=== PATIENT | male | born 1995 ===

== ENCOUNTER 2020-12-16 12:52 | Emergency (ER) | payer MEDICAID, SELFPAY ==
[2020-12-16 15:07] VITALS: BP 155/66; PULSE 96; RESP 18; TEMP 36.4; O2SAT 100; BMI 19.6
--- NOTE | 2020-12-16 16:26 | ED.GENADULT ---
HPI - General Adult General Chief complaint: General Medical <CRISTHIAN Lopez - Last Filed: 12/16/20 18:03> Stated complaint: dehydration <CRISTHIAN Lopez Last Filed: 12/16/20 18:03> Time Seen by Provider: 12/16/20 15:12 <CRISTHIAN Lopez Last Filed: 12/16/20 18:03> Source: patient <CRISTHIAN Lopez Last Filed: 12/16/20 18:03> Mode of arrival: ambulatory <CRISTHIAN Lopez Last Filed: 12/16/20 18:03> Limitations: no limitations <CRISTHIAN Lopez Last Filed: 12/16/20 18:03> History of Present Illness HPI narrative: Patient is a 24-year-old male with no significant past medical history complaining of muscle spasms in the bilateral legs, left hand as well as left lower quadrant pain in his belly that all began yesterday. He states he has not been drinking any water recently and has only been drinking soda and juice. He also states he has not been eating normally because he is depressed. He has an appointment to speak with the therapist next week at [facility]. He states he is depressed because his mom and has and he has no one in his life. He also states he did vomit once this morning and as he was sitting in the waiting room, the pain in his belly moved more towards the epigastric area. He denies nausea, constipation, diarrhea, fevers. <CRISTHIAN Lopez Last Filed: 12/16/20 18:03> Related Data Home medications: Previous Rx's Medication Instructions Recorded magnesium oxide 400 mg PO BID #20 cap 12/16/20 <CRISTHIAN Lopez Last Filed: 12/16/20 18:03> Allergies/adverse reactions: Allergies Allergy/AdvReac Type Severity Reaction Status Date / Time No Known Allergies Allergy Unverified 08/04/20 16:21 [No Known Allergies*] <CRISTHIAN Lopez Last Filed: 12/16/20 18:03> Review of Systems Review of Systems: Yes all other systems are reviewed and are negative <CRISTHIAN Lopez - Last Filed: 12/16/20 18:03> [facility] Social History Social History: Social History Alcohol intake: never Smoked in Last 30 Days: No Use of substances other than those prescribed or required for medical reasons: No Advance Directives: No Advance Directives Information Provided: Yes <CRISTHIAN Lopez - Last Filed: 12/16/20 18:03> Physical Exam Vital Signs: Vital Signs: Last Vital Signs Temp 100.0 F 12/16/20 18:22 Pulse 108 H 12/16/20 18:22 Resp 18 12/16/20 18:22 BP 134/72 12/16/20 18:22 Pulse Ox 99 12/16/20 18:22 Body Mass Index 19.6 <CRISTHIAN Lopez - Last Filed: 12/16/20 18:03> Vital Signs: Last Vital Signs Temp 100.0 F 12/16/20 18:22 Pulse 108 H 12/16/20 18:22 Resp 18 12/16/20 18:22 BP 134/72 12/16/20 18:22 Pulse Ox 99 12/16/20 18:22 Body Mass Index 19.6 <Leesa Delatorre NP - Last Filed: 12/16/20 23:20> Const: General: cooperative, healthy appearing, comfortable, no acute distress and well developed <CRISTHIAN Lopez - Last Filed: 12/16/20 18:03> Nutritional Appearance: thin <CRISTHIAN Lopez - Last Filed: 12/16/20 18:03> Orientation/consciousness: patient oriented x3 <CRISTHIAN Lopez - Last Filed: 12/16/20 18:03> Eyes: General: appearance normal, both eyes and all related structures <CRISTHIAN Lopez - Last Filed: 12/16/20 18:03> Neck: Neck: Yes normal visual inspection, Yes full ROM, Yes no meningeal signs and Yes supple <CRISTHIAN Lopez - Last Filed: 12/16/20 18:03> Resp: Effort & Inspection: normal respiratory effort and able to speak in complete sentences <CRISTHIAN Lpoez Last Filed: 12/16/20 18:03> Auscultation: clear to auscultation bilaterally <CRISTHIAN Lopez - Last Filed: 12/16/20 18:03> Cardio: Rate: regular rate <Michelle Hubbard [facility] Last Filed: 12/16/20 18:03> Rhythm: regular rhythm <CRISTHIAN Lopez Last Filed: 12/16/20 18:03> Heart sounds: normal S1 and S2 <CRISTHIAN Lopez Last Filed: 12/16/20 18:03> GI: Inspection: Yes normal to inspection <CRISTHIAN Lopez Last Filed: 12/16/20 18:03> Palpation (GI): Soft to palpation, Tenderness to palpation present (GI) in the LLQ; Villanueva's sign negative and with no rebound tenderness and Guarding due to palpation present (GI) in the LLQ <CRISTHIAN Lopez Last Filed: 12/16/20 18:03> Auscultation: Hypoactive bowel sounds present <CRISTHIAN Lopez Last Filed: 12/16/20 18:03> Skin: General skin exam: no rashes or lesions noted <CRISTHIAN Lopez Last Filed: 12/16/20 18:03> Neuro: General: patient oriented x3 and no meningeal signs <CRSITHIAN Lopez Last Filed: 12/16/20 18:03> Extrem: Other: Tenderness to palpation of bilateral calf muscles as well thenar area of left hand <CRISTHIAN Lopez Last Filed: 12/16/20 18:03> Psych: Appearance: grossly normal <CRISTHIAN Lopez Last Filed: 12/16/20 18:03> Speech and movement: Normal speech and movement present <CRISTHIAN Lopez Last Filed: 12/16/20 18:03> Affect: Sad affect present <CRISTHIAN Lopez Last Filed: 12/16/20 18:03> Attitude: cooperative <CRISTHIAN Lopez - Last Filed: 12/16/20 18:03> Thought process: Normal thought process present <CRISTHIAN Lopez - Last Filed: 12/16/20 18:03> Thought content: Normal thought content present <CRISTHIAN Lopez Last Filed: 12/16/20 18:03> Insight: Good insight present (Psych) <CRISTHIAN Lopez - Last Filed: 12/16/20 18:03> Judgement: Good judgement present (Psych) <CRISTHIAN Lopez - Last Filed: 12/16/20 18:03> Course Course Course Narrative: 24-year-old male with no significant past medical history presenting with muscle cramping and pain in bilateral calves and the thenar area of the left hand as well as left lower quadrant pain and vomiting x1. Patient is fairly well appearing, BP is slightly elevated at 150 5/66 but other vital signs are stable. Patient has not been eating or drinking normally recently so I will do labs to assess hydration status, abdomen was quite tender so I will get a CT scan of the abdomen. With regard to the muscle spasms and pain, I will check a CPK for possible rhabdo as well as other electrolyte abnormalities. I will also get a d dimer to r/o DVT although less likely as bilateral. 5:35pm patient labs reveal elevate WBC at 23.8, elevated total bili at 1.8 and direct at 0.6, Mag 1.4, creatinine kinase elevated at 238 and d dimer slightly elevated at 262. Will give 1 g of magnesium and get ultrasound of the lower extremities to rule out DVT. Muscle spasming pain could be due to slightly low magnesium, elevated creatinine kinase and dehydration, likely rhabdomyolysis. Will get UA. 6pm sign out to Leesa Delatorre NP <CRISTHIAN Lopez - Last Filed: 12/16/20 18:03> Patient re evaluated 645 p.m., DVT study negative, magnesium did not infuse secondary to complication with IV. 2nd G IV magnesium infusing, 2nd L of IV fluids infusing. Plan of care is to discharge home after magnesium and fluids. Patient was advised to follow up with primary care physician next week with repeat magnesium levels. He does understand that his hypomagnesemia needs further workup and that if he continues with muscle contractions or shortness of breath that he must return to the emergency department immediately. Detailed description of instructions given to family, both patient and family verbalized understanding of and agrees to plan of care discharge home. <Leesa Delatorre NP - Last Filed: 12/16/20 23:20> Medical Decision Making Lab Data Result diagrams: : 12/16/20 16:46 12/16/20 16:46 <CRISTHIAN Lopez - Last Filed: 12/16/20 18:03> Labs: Lab Results 12/16/20 12/16/20 12/16/20 Range/Units 16:46 16:46 16:46 WBC 23.8 H (4.8-10.8) X10*3/uL RBC 5.53 (4.60-5.80) X10*6/uL Hgb 16.0 (14.0-18.0) g/dl Hct 46.0 (42-52) % MCV 83.2 (80-98) fL MCH 28.9 (27.0-33.0) pg MCHC 34.8 (31.0-36.0) g/dl RDW 12.9 (11.0-16.0) % Plt Count 199 (160-400) X10*3/uL MPV 10.6 (9.4-12.4) fL Immature Gran % (Auto) 0.8 H (0.0-0.4) % Neut % (Auto) 87.6 H (45-73) % Lymph % (Auto) 6.3 L (20-40) % [place] % (Auto) 5.1 (2-11) % Eos % (Auto) 0.0 (0-4) % Baso % (Auto) 0.2 (0-2) % Lymph # (Auto) 1.5 (1.2-4.9) X10*3/uL [place] # (Auto) 1.2 (0.1-1.2) X10*3/uL Eos # (Auto) 0.0 (0.0-0.4) X10*3/uL Baso # (Auto) 0.1 (0.0-0.2) X10*3/uL Abs Immat Gran (auto) 0.19 H (0.00-0.03) X10*3/uL Absolute Neuts (auto) 20.8 H (2.0-8.3) X10*3/uL Absolute Nucleated RBC 0.000 (0.0-0.012) X10*3/uL Nucleated RBC % (auto) 0.0 (0.0-0.2) /100WBC Smear Tech's Comments VERIFIED D-Dimer 262 NG/ML Sodium 136 (135-145) mmol/L Potassium 3.6 (3.3-5.1) mmol/L Chloride 100 (96-108) mmol/L Carbon Dioxide 24 (22-29) mmol/L Anion Gap 16 (12-20) BUN 14 (9-16) mg/dL Creatinine 1.13 (0.5-1.4) mg/dL Estim Creat Clear Calc 92.9 Estimated GFR > 60 Random Glucose 108 (60-115) mg/dL Calcium 9.3 (8.4-10.2) mg/dL Magnesium 1.4 L* (1.6-2.6) mg/dL Total Bilirubin 1.8 H (0.0-1.0) mg/dL Direct Bilirubin 0.6 H (0.0-0.5) mg/dL AST 20 (5-37) U/L ALT 22 (0-40) U/L Alkaline Phosphatase 75 (39-117) U/L Lactate Dehydrogenase 197 (118-273) U/L Total Creatine Kinase 238 H (38-174) U/L Total Protein 7.5 (6.5-8.0) g/dL Albumin 4.5 (3.5-5.0) g/dL Urine Color Urine Appearance Urine pH (5.0-8.0) Ur Specific [place] (1.005-1.025) Urine Protein (NEG-TRACE) MG/DL Urine Glucose (UA) (NEG) MG/DL Urine Ketones (NEG) MG/DL Urine Blood (NEG) Urine Nitrite (NEG) Ur Leukocyte Esterase (NEG) COVID-19 (JAH) (Negative) COVID-19 Clin Com 12/16/20 12/16/20 Range/Units 18:18 18:18 WBC (4.8-10.8) X10*3/uL RBC (4.60-5.80) X10*6/uL Hgb (14.0-18.0) g/dl Hct (42-52) % MCV (80-98) fL MCH (27.0-33.0) pg MCHC (31.0-36.0) g/dl RDW (11.0-16.0) % Plt Count (160-400) X10*3/uL MPV (9.4-12.4) fL Immature Gran % (Auto) (0.0-0.4) % Neut % (Auto) (45-73) % Lymph % (Auto) (20-40) % [place] % (Auto) (2-11) % Eos % (Auto) (0-4) % Baso % (Auto) (0-2) % Lymph # (Auto) (1.2-4.9) X10*3/uL [place] # (Auto) (0.1-1.2) X10*3/uL Eos # (Auto) (0.0-0.4) X10*3/uL Baso # (Auto) (0.0-0.2) X10*3/uL Abs Immat Gran (auto) (0.00-0.03) X10*3/uL Absolute Neuts (auto) (2.0-8.3) X10*3/uL Absolute Nucleated RBC (0.0-0.012) X10*3/uL Nucleated RBC % (auto) (0.0-0.2) /100WBC Smear Tech's Comments D-Dimer NG/ML Sodium (135-145) mmol/L Potassium (3.3-5.1) mmol/L Chloride (96-108) mmol/L Carbon Dioxide (22-29) mmol/L Anion Gap (12-20) BUN (9-16) mg/dL Creatinine (0.5-1.4) mg/dL Estim Creat Clear Calc Estimated GFR Random Glucose (60-115) mg/dL Calcium (8.4-10.2) mg/dL Magnesium (1.6-2.6) mg/dL Total Bilirubin (0.0-1.0) mg/dL Direct Bilirubin (0.0-0.5) mg/dL AST (5-37) U/L ALT (0-40) U/L Alkaline Phosphatase (39-117) U/L Lactate Dehydrogenase (118-273) U/L Total Creatine Kinase (38-174) U/L Total Protein (6.5-8.0) g/dL Albumin (3.5-5.0) g/dL Urine Color YELLOW Urine Appearance CLEAR Urine pH 8.5 H (5.0-8.0) Ur Specific [place] 1.015 (1.005-1.025) Urine Protein NEG (NEG-TRACE) MG/DL Urine Glucose (UA) NEG (NEG) MG/DL Urine Ketones 15 (NEG) MG/DL Urine Blood NEG (NEG) Urine Nitrite NEG (NEG) Ur Leukocyte Esterase NEG (NEG) COVID-19 (JAH) Negative (Negative) COVID-19 Clin Com See Note <CRISTHIAN Lopez - Last Filed: 12/16/20 18:03> Lab Results 12/16/20 12/16/20 12/16/20 Range/Units 16:46 16:46 16:46 WBC 23.8 H (4.8-10.8) X10*3/uL RBC 5.53 (4.60-5.80) X10*6/uL Hgb 16.0 (14.0-18.0) g/dl Hct 46.0 (42-52) % MCV 83.2 (80-98) fL MCH 28.9 (27.0-33.0) pg MCHC 34.8 (31.0-36.0) g/dl RDW 12.9 (11.0-16.0) % Plt Count 199 (160-400) X10*3/uL MPV 10.6 (9.4-12.4) fL Immature Gran % (Auto) 0.8 H (0.0-0.4) % Neut % (Auto) 87.6 H (45-73) % Lymph % (Auto) 6.3 L (20-40) % [place] % (Auto) 5.1 (2-11) % Eos % (Auto) 0.0 (0-4) % Baso % (Auto) 0.2 (0-2) % Lymph # (Auto) 1.5 (1.2-4.9) X10*3/uL [place] # (Auto) 1.2 (0.1-1.2) X10*3/uL Eos # (Auto) 0.0 (0.0-0.4) X10*3/uL Baso # (Auto) 0.1 (0.0-0.2) X10*3/uL Abs Immat Gran (auto) 0.19 H (0.00-0.03) X10*3/uL Absolute Neuts (auto) 20.8 H (2.0-8.3) X10*3/uL Absolute Nucleated RBC 0.000 (0.0-0.012) X10*3/uL Nucleated RBC % (auto) 0.0 (0.0-0.2) /100WBC Smear Tech's Comments VERIFIED D-Dimer 262 NG/ML Sodium 136 (135-145) mmol/L Potassium 3.6 (3.3-5.1) mmol/L Chloride 100 (96-108) mmol/L Carbon Dioxide 24 (22-29) mmol/L Anion Gap 16 (12-20) BUN 14 (9-16) mg/dL Creatinine 1.13 (0.5-1.4) mg/dL Estim Creat Clear Calc 92.9 Estimated GFR > 60 Random Glucose 108 (60-115) mg/dL Calcium 9.3 (8.4-10.2) mg/dL Magnesium 1.4 L* (1.6-2.6) mg/dL Total Bilirubin 1.8 H (0.0-1.0) mg/dL Direct Bilirubin 0.6 H (0.0-0.5) mg/dL AST 20 (5-37) U/L ALT 22 (0-40) U/L Alkaline Phosphatase 75 (39-117) U/L Lactate Dehydrogenase 197 (118-273) U/L Total Creatine Kinase 238 H (38-174) U/L Total Protein 7.5 (6.5-8.0) g/dL Albumin 4.5 (3.5-5.0) g/dL Urine Color Urine Appearance Urine pH (5.0-8.0) Ur Specific [place] (1.005-1.025) Urine Protein (NEG-TRACE) MG/DL Urine Glucose (UA) (NEG) MG/DL Urine Ketones (NEG) MG/DL Urine Blood (NEG) Urine Nitrite (NEG) Ur Leukocyte Esterase (NEG) COVID-19 (JAH) (Negative) COVID-19 Clin Com 12/16/20 12/16/20 Range/Units 18:18 18:18 WBC (4.8-10.8) X10*3/uL RBC (4.60-5.80) X10*6/uL Hgb (14.0-18.0) g/dl Hct (42-52) % MCV (80-98) fL MCH (27.0-33.0) pg MCHC (31.0-36.0) g/dl RDW (11.0-16.0) % Plt Count (160-400) X10*3/uL MPV (9.4-12.4) fL Immature Gran % (Auto) (0.0-0.4) % Neut % (Auto) (45-73) % Lymph % (Auto) (20-40) % [place] % (Auto) (2-11) % Eos % (Auto) (0-4) % Baso % (Auto) (0-2) % Lymph # (Auto) (1.2-4.9) X10*3/uL [place] # (Auto) (0.1-1.2) X10*3/uL Eos # (Auto) (0.0-0.4) X10*3/uL Baso # (Auto) (0.0-0.2) X10*3/uL Abs Immat Gran (auto) (0.00-0.03) X10*3/uL Absolute Neuts (auto) (2.0-8.3) X10*3/uL Absolute Nucleated RBC (0.0-0.012) X10*3/uL Nucleated RBC % (auto) (0.0-0.2) /100WBC Smear Tech's Comments D-Dimer NG/ML Sodium (135-145) mmol/L Potassium (3.3-5.1) mmol/L Chloride (96-108) mmol/L Carbon Dioxide (22-29) mmol/L Anion Gap (12-20) BUN (9-16) mg/dL Creatinine (0.5-1.4) mg/dL Estim Creat Clear Calc Estimated GFR Random Glucose (60-115) mg/dL Calcium (8.4-10.2) mg/dL Magnesium (1.6-2.6) mg/dL Total Bilirubin (0.0-1.0) mg/dL Direct Bilirubin (0.0-0.5) mg/dL AST (5-37) U/L ALT (0-40) U/L Alkaline Phosphatase (39-117) U/L Lactate Dehydrogenase (118-273) U/L Total Creatine Kinase (38-174) U/L Total Protein (6.5-8.0) g/dL Albumin (3.5-5.0) g/dL Urine Color YELLOW Urine Appearance CLEAR Urine pH 8.5 H (5.0-8.0) Ur Specific [place] 1.015 (1.005-1.025) Urine Protein NEG (NEG-TRACE) MG/DL Urine Glucose (UA) NEG (NEG) MG/DL Urine Ketones 15 (NEG) MG/DL Urine Blood NEG (NEG) Urine Nitrite NEG (NEG) Ur Leukocyte Esterase NEG (NEG) COVID-19 (JAH) Negative (Negative) COVID-19 Clin Com See Note <Leesa Delatorre NP - Last Filed: 12/16/20 23:20> Imaging Data CT scan - abdomen: Attestation: I personally reviewed and interpreted this imaging study as follows: <CRISTHIAN Lopez - Last Filed: 12/16/20 18:03> My impression: Negative for acute abnormality <CRISTHIAN Lopez - Last Filed: 12/16/20 18:03> Radiologist's impression: [address] Scan ReportSigned Patient: Alexander Nicole#: [id number]: [id number]:[id number]/Sex: 24 / MADM Date: 12/16/20Loc: [address] Dr: Ordering Physician: MICHELLE HUBBARD Date of Service: 12/16/20 Procedure(s): CT abdomen pelvis wo con Accession Number(s): [id number] cc: MICHELLE HUBBARD~ EXAMINATION: CT ABDOMEN AND PELVIS WITHOUT CONTRAST CLINICAL INFORMATION: Left lower quadrant pain COMPARISON: None TECHNIQUE: Multidetector volumetric imaging was performed from the superior aspect of the liver through the pubic symphysis. Sagittal and coronal reformatted images were obtained on the technologist's workstation. This CT examination was performed using dose optimization techniques as appropriate, variously including the following: *Automated exposure control *Adjustment of mA and/or kV according to patient size (this includes techniques or standardized protocols for targeted exams where dose is matched to indication/reason for exam; i.e. extremities or head) *Use of iterative reconstruction technique DLP: 407 mGy-cm FINDINGS: LUNG BASES: The visualized lung bases are unremarkable. LIVER, GALLBLADDER, AND BILIARY TREE: The liver is normal in size, shape, and attenuation. No focal hepatic lesion or biliary ductal dilatation is present. The gallbladder is unremarkable with no evidence of radiopaque gallstones, gallbladder wall thickening, or obvious pericholecystic inflammatory changes. PANCREAS: Unremarkable. SPLEEN: Unremarkable. ADRENAL GLANDS: Unremarkable. KIDNEYS AND URETERS: The kidneys are normal in size, shape, and attenuation. No hydronephrosis, hydroureter, or calculi seen. No perinephric stranding. BLADDER: Unremarkable. GASTROINTESTINAL TRACT: The small and large bowel are unremarkable. The appendix is unremarkable. ABDOMINAL WALL: No significant hernia is appreciated. LYMPH NODES: Normal. VASCULAR: Unremarkable. PELVIC VISCERA: Unremarkable. OSSEOUS STRUCTURES: Unremarkable. CT/CT abdomen pelvis wo con IMPRESSION: No significant abnormality. Dictated By:ELANA RINCON MDSigned By:<Electronically signed by ELANA RINCON MD in OV>12/16/20 [id number] <CRISTHIAN Lopez - Last Filed: 12/16/20 18:03> Venous US: Attestation: I personally reviewed and interpreted this imaging study as follows: <Leesa Delatorre NP - Last Filed: 12/16/20 23:20> Radiologist's impression: EXAMINATION: US VENOUS ULTRASOUND WITH DOPPLER LOWER EXTREMITY, BILATERAL CLINICAL INFORMATION: Positive Homans sign. Elevated d-dimer. COMPARISON: None TECHNIQUE: Ultrasound of the deep veins is performed from the hip to the calf with compression sonography and color and pulse Doppler assessment. Spectral analysis with color-flow imaging is performed. FINDINGS: RIGHT: There is normal venous compression and respiratory variation and augmented flow. The visualized common femoral vein, superficial femoral vein, profunda femoral vein, popliteal vein, and the trifurcation region shows no evidence of deep venous thrombosis. There is no significant popliteal fossa cyst. LEFT: There is normal venous compression and respiratory variation and augmented flow. The visualized common femoral vein, superficial femoral vein, profunda femoral vein, popliteal vein, and the trifurcation region shows no evidence of deep venous thrombosis. There is no significant popliteal fossa cyst. If the patient's symptoms persist, followup ultrasound in 5 days 7 days might be of value to exclude proximal propagation from a non-visualized calf vein. US/US venous duplex LE BI IMPRESSION: No DVT demonstrated in the bilateral lower extremities. <Leesa Delatorre NP - Last Filed: 12/16/20 23:20> Discharge Plan Discharge Clinical Impression: Hypomagnesemia Rhabdomyolysis Qualifiers: Rhabdomyolysis type: non-traumatic Qualified Code(s): M62.82 - Rhabdomyolysis <CRISTHIAN Lopez - Last Filed: 12/16/20 18:03> Patient Disposition: Home, Self-Care <CRISTHIAN Lopez - Last Filed: 12/16/20 18:03> Instructions: Dehydration (ED), Rhabdomyolysis (ED), Hypomagnesemia (ED) <CRISTHIAN Lopez - Last Filed: 12/16/20 18:03> Additional Instructions: You were evaluated for multiple musculoskeletal complaints. Your CPK was slightly elevated which could be a mild rhabdomyolysis. Please continue to drink plenty of fluids. Please mix Pedialyte with water to ensure that you have enough electrolytes. Please supplement with daily magnesium. Your magnesium level was very low. please take a magnesium supplement daily until you see your primary care provider. When you see your primary care provider next Saturday make sure that they take a magnesium level. Follow-up with primary care provider this week. CT scan of the abdomen is negative for acute findings, venous duplex of bilateral lower extremities was negative for blood clots. If symptoms persist or get worse return to the emergency department Thank you for choosing this emergency department for evaluation. Please follow-up with primary care physician as needed. Return to the emergency department for any new, concerning, or worsening symptoms. <CRISTHIAN Lopez - Last Filed: 12/16/20 18:03> Prescriptions: New magnesium oxide 400 mg magnesium capsule 400 mg PO BID Qty: 20 RF: 0 <CRISTHIAN Lopez - Last Filed: 12/16/20 18:03> Interventions: ED Discharge Assessment Last Done: 12/16/20 21:05 <CRISTHIAN Lopez - Last Filed: 12/16/20 18:03> Discharge Date/Time: 12/16/20 21:06 <CRISTHIAN Lopez - Last Filed: 12/16/20 18:03>
[2020-12-16 16:52] LABS: Basophils Absolute Auto 0.1 X10*3/uL (0.0-0.2); Basophils Percent Auto 0.2 % (0-2); Imm Gran Abs Auto 0.19 X10*3/uL (0.00-0.03); Imm Gran Pct Auto 0.8 % (0.0-0.4); Lymphocytes Absolute Auto 1.5 X10*3/uL (1.2-4.9); Lymphocytes Percent Auto 6.3 % (20-40); MANUAL DIFF FLAG SCAN; Mean Corpuscular HGB Conc 34.8 g/dl (31.0-36.0); Mean Corpuscular Hemoglobin 28.9 pg (27.0-33.0); Mean Corpuscular Volume 83.2 fL (80-98); Mean Platelet Volume 10.6 fL (9.4-12.4); Monocytes Absolute Auto 1.2 X10*3/uL (0.1-1.2); Monocytes Percent Auto 5.1 % (2-11); Neutrophils Absolute Auto 20.8 X10*3/uL (2.0-8.3); Neutrophils Percent Auto 87.6 % (45-73); Platelet Count 199 X10*3/uL (160-400); Red Blood Count 5.53 X10*6/uL (4.60-5.80); Red Cell Distribution Width 12.9 % (11.0-16.0); SCAN SMEAR FLAG 1; White Blood Count 23.8 X10*3/uL (4.8-10.8)
[2020-12-16] MEDS: Lactated Ringers 1,000 ML 999 ML IVCONT (16:52)
[2020-12-16 16:53] VITALS: BP 161/79; PULSE 102; RESP 18; TEMP 37; O2SAT 100
[2020-12-16 17:01] LABS: D Dimer 262 NG/ML
[2020-12-16 17:24] LABS: Alanine Aminotransferase 22 U/L (0-40); Albumin Level 4.5 g/dL (3.5-5.0); Alkaline Phosphatase 75 U/L (39-117); Anion Gap 16 (12-20); Aspartate Amino Transferase 20 U/L (5-37); Bilirubin Direct 0.6 mg/dL (0.0-0.5); Bilirubin Total 1.8 mg/dL (0.0-1.0); Blood Urea Nitrogen 14 mg/dL (9-16); Calcium 9.3 mg/dL (8.4-10.2); Carbon Dioxide 24 mmol/L (22-29); Chloride 100 mmol/L (96-108); Creatinine Clr Calc Pharmacy 92.9; Estimated Glomerular Filt Rate > 60; Glucose Random 108 mg/dL (60-115); Lactate Dehydrogenase 197 U/L (118-273); Potassium 3.6 mmol/L (3.3-5.1); Sodium 136 mmol/L (135-145); Total Protein 7.5 g/dL (6.5-8.0)
[2020-12-16 17:26] LABS: Magnesium 1.4 mg/dL (1.6-2.6)
--- NOTE | 2020-12-16 17:30 | US_ITS ---
EXAMINATION: US VENOUS ULTRASOUND WITH DOPPLER LOWER EXTREMITY, BILATERAL CLINICAL INFORMATION: Positive Homans sign. Elevated d-dimer. COMPARISON: None TECHNIQUE: Ultrasound of the deep veins is performed from the hip to the calf with compression sonography and color and pulse Doppler assessment. Spectral analysis with color-flow imaging is performed. FINDINGS: RIGHT: There is normal venous compression and respiratory variation and augmented flow. The visualized common femoral vein, superficial femoral vein, profunda femoral vein, popliteal vein, and the trifurcation region shows no evidence of deep venous thrombosis. There is no significant popliteal fossa cyst. LEFT: There is normal venous compression and respiratory variation and augmented flow. The visualized common femoral vein, superficial femoral vein, profunda femoral vein, popliteal vein, and the trifurcation region shows no evidence of deep venous thrombosis. There is no significant popliteal fossa cyst. If the patient's symptoms persist, followup ultrasound in 5 days 7 days might be of value to exclude proximal propagation from a non-visualized calf vein. US/US venous duplex LE BI IMPRESSION: No DVT demonstrated in the bilateral lower extremities.
[2020-12-16 17:36] LABS: SLIDE REVIEW VERIFIED
[2020-12-16] MEDS: Magnesium Sulfate/D5W 1 GM/100 ML PIGGYBACK IV ×2 (17:59→19:47)
[2020-12-16 18:22] VITALS: BP 134/72; PULSE 108; RESP 18; TEMP 37.8; O2SAT 99
[2020-12-16 18:27] LABS: Glucose Urine UA NEG (NEG); Leukocyte Esterase Urine NEG (NEG); Nitrite Urine NEG (NEG); PH 8.5 (5.0-8.0); Specific Gravity - Urine 1.015 (1.005-1.025); Urine Blood NEG (NEG); Urine Ketones 15 MG/DL (NEG); Urine Protein NEG (NEG-TRACE)
[2020-12-16 18:32] LABS: Appearance Urine CLEAR; Color Urine YELLOW
[2020-12-16 18:41] LABS: COVID-19 Test Negative (Negative); IDNOW Serial# 9DD0AD1C
--- NOTE | 2020-12-16 19:14 | PC.NURSE ---
PT UP AND GOING TO THE RESTROOM. PT DENIES ANY COMPLAINTS. PT AWAKE AND ALERT.
--- NOTE | 2020-12-16 19:47 | PC.NURSE ---
2nd bag of magnesium 1gm hung at this time by Leesa SHAW.
--- NOTE | 2020-12-16 20:13 | PC.NURSE ---
2ND BAG OF MAG UP AND RUNNING ON PUMP. PT REQUESTING TO GO HOME. WILL CONTINUE TO MONITOR PT.
[2020-12-16] MEDS: ondansetron HCL 4 MG/2 ML VIAL IVPUSH (20:39)
== END 2020-12-16 21:06 | disposition home or self-care (01) ==
PROVIDERS: Nurse Practitioner Family; Physician Assistant; Emergency Provider Emergency Medicine
DX: E83.42 Hypomagnesemia (principal); M62.82 Rhabdomyolysis; R60.0 Localized edema; E86.0 Dehydration; M79.605 Pain in left leg; M79.604 Pain in right leg; R10.32 Left lower quadrant pain; Z20.822 Contact with and (suspected) exposure to COVID-19
CPT/HCPCS: 36415; 74176; 80048; 80076; 81003; 82550; 83615; 83735; 85025; 85379; 87635; 93970; 96361; 96365; 96366; 96375; 99284; J2405; J3475

== ENCOUNTER 2020-12-26 14:02 | Outpatient (REF) | payer MEDICAID, SELFPAY ==
--- NOTE | ~2020-12-26 | US_ITS ---
EXAMINATION: LEFT UPPER AND LOWER EXTREMITY VENOUS ULTRASOUND CLINICAL INFORMATION: Swelling and pain of the left arm and leg COMPARISON: Previous left lower extremity venous ultrasound 12/16/2020 TECHNIQUE: Doppler color and grayscale evaluation of the veins of the left upper extremity and left jugular vein. Doppler color and grayscale evaluation of the veins of the left lower extremity. FINDINGS: Left upper arm: The left internal jugular, subclavian, axillary, cephalic, brachial and basilic veins are patent. The radial and ulnar veins in the forearm are patent. There is no evidence of DVT. Left lower leg: The left common femoral, superficial femoral, profunda, popliteal and posterior tibial and peroneal veins are patent. There is no evidence of DVT. No Lance's cyst is seen. US/US venous duplex UE LT IMPRESSION: No evidence of DVT in the left upper and lower extremity.
--- NOTE | ~2020-12-26 | US_ITS ---
EXAMINATION: LEFT UPPER AND LOWER EXTREMITY VENOUS ULTRASOUND CLINICAL INFORMATION: Swelling and pain of the left arm and leg COMPARISON: Previous left lower extremity venous ultrasound 12/16/2020 TECHNIQUE: Doppler color and grayscale evaluation of the veins of the left upper extremity and left jugular vein. Doppler color and grayscale evaluation of the veins of the left lower extremity. FINDINGS: Left upper arm: The left internal jugular, subclavian, axillary, cephalic, brachial and basilic veins are patent. The radial and ulnar veins in the forearm are patent. There is no evidence of DVT. Left lower leg: The left common femoral, superficial femoral, profunda, popliteal and posterior tibial and peroneal veins are patent. There is no evidence of DVT. No Lance's cyst is seen. US/US venous duplex LE LT IMPRESSION: No evidence of DVT in the left upper and lower extremity.
== END 2020-12-26 14:03 | disposition home or self-care (01) ==
LOC: HO.US 14:02
PROVIDERS: Visit Provider Emergency Medicine
DX: M79.602 Pain in left arm (principal); M79.605 Pain in left leg; R79.89 Other specified abnormal findings of blood chemistry
CPT/HCPCS: 93971